=== PATIENT | male | born 1980 | race Caucasian/White ===

== ENCOUNTER 2024-11-11 22:51 | Emergency (ER) | payer OTHER ==
[~2024-11-11] VITALS: Ht 193 cm; Wt 132.7 kg
[2024-11-12] MEDS: ketorolac trometh 15mg/ml vial 15 MG/ML ML IM ONE (03:20)
[2024-11-12] MEDS: HYDROcodone/acetaminophen 5mg/325mg tablet PO ONE (05:41)
[2024-11-12] MEDS: ondansetron 4mg rapidly disintigrating tab PO ONE (05:41)
[2024-11-12] MEDS ORDERED: METF-900 PO (05:53)
[2024-11-12 06:39] VITALS: BP 158/89; PULSE 90; RESP 18; TEMP 98.6; O2SAT 96
== END 2024-11-12 06:41 | disposition home or self-care (01) ==
LOC: ER 22:52
DX: S86.012A Strain of left Achilles tendon, initial encounter (principal); X58.XXXA Exposure to other specified factors, initial encounter; Y93.64 Activity, baseball; Y92.89 Other specified places as the place of occurrence of the external cause; Y99.8 Other external cause status
CPT/HCPCS: 76881; 96372; 99285; J1885